=== PATIENT | male | born 2000 | race African-American/Black ===

== ENCOUNTER 2022-11-19 02:27 | Emergency (ER) | payer OTHER ==
[~2022-11-19] VITALS: Ht 177.8 cm; Wt 83.2 kg
[2022-11-19 02:33] VITALS: BP 108/68; TEMP 98.1
[2022-11-19 03:04] VITALS: PULSE 75
== END 2022-11-19 03:05 | disposition home or self-care (01) ==
LOC: COL.ER 02:27
DX: S03.02XA Dislocation of jaw, left side, initial encounter (principal); Z28.311 Partially vaccinated for COVID-19; X50.1XXA Overexertion from prolonged static or awkward postures, initial encounter